=== PATIENT | female | born 1955 | race Caucasian/White ===

== ENCOUNTER → 2017-03-07 | Outpatient (CLI) | payer OTHER ==
--- NOTE | 2017-03-07 15:56 | MAMMOGRAPHY REPORT ---
BILATERAL DIGITAL SCREENING MAMMOGRAM WITH CAD: 03/07/2017 CLINICAL HISTORY: Routine screening. TECHNIQUE: Bilateral CC, MLO and repeat left MLO view with more anterior compression views were obta ined. Current study was also evaluated with a Computer Aided Detection (CAD) system. COMPARISON: Comparison is made to exams dated: 03/02/2016 mammogram, 02/28/2015 mammogram, 02/14/2014 mammogram, 02/13/2013 mammogram, 06/09/2011 mammogram, and 06/08/2010 mammogram - [facility] nter. BREAST COMPOSITION: There are scattered areas of fibroglandular density in both breasts. FINDINGS: There is a 6 mm nodular asymmetry in the middle to posterior right breast, along the post erior nipple line on the CC view, with possible associated calcification. This is thought to projec t in the 6:00 axis based on the MLO view, but could also lie in the 12:00 axis. Additional spot com pression tomosynthesis views and spot magnification views, as well as possible ultrasound is recomme nded. There is a stable mass with associated popcorn calcification in the upper outer quadrant of the righ t breast, most likely a degenerating fibroadenoma. No other suspicious mass, focal area of architec tural distortion or suspicious calcifications are seen bilaterally. IMPRESSION: ACR BI-RADS CATEGORY 0: INCOMPLETE EVALUATION: NEED ADDITIONAL IMAGING EVALUATION The 6 mm nodular asymmetry with possible associated microcalcification in the right breast needs add itional evaluation. The patient will be called to schedule an appointment. Approximately 10% of breast cancers are not detected with mammography. A negative mammographic repor t should not delay biopsy if a clinically suggestive mass is present. Sissy Larry M.D. ay/:03/07/2017 15:52:05 Credit Officer: Yara PATEL(Lizeth)(M), [facility] letter sent: Addl Imaging 0 BI-RADS Code: ACR BI-RADS Category 0: Incomplete Evaluation: Need Additional Imaging Evaluation
== END | disposition home or self-care (01) ==
LOC: C.MAMM 12:35
PROVIDERS: ATTEND Obstetrics & Gynecology
DX: Z12.31 Encounter for screening mammogram for malignant neoplasm of breast (principal); N64.89 Other specified disorders of breast

== ENCOUNTER → 2017-03-14 | Outpatient (CLI) | payer OTHER ==
--- NOTE | 2017-03-14 14:25 | MAMMOGRAPHY REPORT ---
UNILATERAL RIGHT DIGITAL DIAGNOSTIC MAMMOGRAM TOMOSYNTHESIS AND TARGETED RIGHT ULTRASOUND: 03/14/2017 CLINICAL HISTORY: 61-year-old woman called back from screening mammography for a 6 mm nodular asymme try with possible associated microcalcification in the 6:00 right breast. Patient reports a history of prior cyst aspiration. TECHNIQUE: Spot magnification right CC and ML , spot compression to the digital and tomosynthesis ri ght CC and MLO views were obtained. COMPARISON: Comparison is made to exams dated: 03/07/2017 mammogram, 03/02/2016 mammogram, 02/28/2015 m ammogram, 02/14/2014 mammogram, 02/13/2013 mammogram, and 06/09/2011 mammogram - [facility] nt. BREAST COMPOSITION: There are scattered areas of fibroglandular density in the right breast. FINDINGS: There is persistence of a 5.5 x 3.9 x 5.2 mm mass with associated faint punctate and kayce phous microcalcifications in the 6:00 middle to posterior right breast. No associated architectural distortion. Further evaluation with ultrasound was performed. Targeted ultrasound was performed in the 5:00 through 7:00, retroareolar and 12:00 axes of the right breast. In the 6:30 breast, 3 cm from the nipple, there is a lobulated isoechoic possible mass marissa mica fat lobule measuring 5.1 x 2.6 mm identified in the anti-radial plane. However, this is less co nspicuous in the radial plane and unclear if this represents a true finding or normal fat lobule. O verall, no definite sonographic correlate is identified. Given the newly visualized nature of this focal asymmetry with associated microcalcification, it rem ains indeterminate and definitive characterization with a stereotactic guided biopsy is recommended. IMPRESSION: ACR BI-RADS CATEGORY 4B: INTERMEDIATE SUSPICION FOR MALIGNANCY, TARGETED ULTRASOUND ACR BI-RADS CATEGORY 4B: INTERMEDIATE SUSPICION FOR MALIGNANCY 1. Right breast stereotactic guided biopsy is recommended for a 5.5 mm focal asymmetry with associa emilia clustered amorphous microcalcifications in the 6:00 right breast. These results and recommendations were discussed with the patient at the time of the exam. She tent atively scheduled the biopsy prior to leaving our department. Approximately 10% of breast cancers are not detected with mammography. A negative mammographic repor t should not delay biopsy if a clinically suggestive mass is present. Sissy malone/:03/14/2017 10:42:50 Osteopathic Resident: Erin Villaseñor [facility] letter sent: Abnormal / BI-RADS Code: ACR BI-RADS Category 4B: Intermediate Suspicion For Malignancy Ultrasound BI-RADS: AC R BI-RADS Category 4B: Intermediate Suspicion For Malignancy
== END | disposition home or self-care (01) ==
LOC: C.MAMM 09:01
PROVIDERS: ATTEND Obstetrics & Gynecology
DX: R92.0 Mammographic microcalcification found on diagnostic imaging of breast (principal)

== ENCOUNTER → 2017-03-22 | Outpatient (CLI) | payer OTHER ==
--- NOTE | 2017-03-22 13:26 | Discharge Instructions ---
Discharge Instructions Procedure Procedure Date: March 22, 2017. Reason for visit: Right Mass/Calcs. Discharge Discharge Date: March 22, 2017. Discharge Diagnosis: post right breast stereotactic guided biopsy Instructions Activity Recommendations: Additional Limitations (See below) Return to School/Work: no limitations Recommended Home Diet: No Limitations Provider Instructions: ACTIVITY RECOMMENDATIONS: * No lifting, pushing, pulling or exercising the affected side for three days. RETURN TO SCHOOL/WORK: * You may return to work/school after the procedure, but do not perform any strenuous activities for 24 to 48 hours. MEDICATIONS: * Tylenol (two 325 mg) every four to six hours if needed for mild pain (if not allergic to Tylenol). DIET: * Resume previous diet. SPECIAL CARE INSTRUCTIONS: * Keep biopsy site dry for 24 hours. May shower after 24 hours, but do not soak (bathe) incision. * May remove Tegaderm (plastic patch) tomorrow AFTER showering. * Leave the steri-strips on for one week. Allow the steri-strips to fall off by themselves. If not off after one week, you may remove them. You may place a Bandaid crosswise over the strips, if desired. * Apply ice 10 minutes on and 10 minutes off as needed. * Wear a bra at bedtime to sleep more comfortably for 2-3 days. * Your referring physician should have the results after approximately 5 to 7 business days. * Call for unusual bleeding, fever, drainage, etc or if you have any questions call [phone] during normal business hours or after hours call Dr Larry, . FOLLOW UP VISIT: Follow-up with Referring Physician as scheduled. Allergies Coded Allergies: No Known Allergies (Verified Allergy, Unknown, 12/20/02) Uncoded Allergies: N (Allergy, Unknown, 12/20/02) NFA (Allergy, Unknown, 12/20/02) NKDA (Allergy, Unknown, 12/20/02) NO (Allergy, Unknown, 12/20/02) Amada Hatch Recommendations: Call your doctor if: * Temperature above 101 degrees * Pain not relieved by pain medicine ordered * There is increased drainage or redness from any incision * You have any unanswered questions or concerns. Your Doctors Instructions noted above were prepared by provider Sissy Larry. Patient Signature Section: Patient Instructions Signature Page Aby Jesus Patient (or Guardian) Signature/Date: I have read and understand the instructions given to me by my caregivers. Caregiver/RN/Doctor Signature/Date: The above-named patient and/or guardian has received patient instructions on this date. + Original Patient Signature Page (only) stays with chart. Please make copy for patient.
--- NOTE | 2017-03-22 16:18 | MAMMOGRAPHY REPORT ---
THIS REPORT HAS BEEN AMENDED. AMENDMENT: 03/30/2017 Sissy Larry M.D. Pathology results from the stereotactic guided biopsy of a small asymmetry with associated calcifica tion in the 6:00 right breast yielded fibrocystic change with apocrine metaplasia and benign breast tissue with variable stromal fibrosis. Pathology results are concordant with the imaging appearance . Recommend return to annual screening mammography schedule. STEREOTACTIC GUIDED BIOPSY RIGHT BREAST: 03/22/2017 CLINICAL HISTORY: 5.5 mm focal asymmetry with associated faint amorphous microcalcification in the 6 :00 middle to posterior right breast, without sonographic correlate identified. Patient presents fo r stereotactic biopsy. COMPARISON: Comparison is made to exams dated: 03/14/2017 ultrasound, 03/14/2017 mammogram, 03/07/2017 ma mmogram, 03/02/2016 mammogram, 02/28/2015 mammogram, and 02/14/2014 mammogram - [facility] enter. PATIENT CONSENT: After explaining the risks, benefits and alternatives of the procedure to the patie nt, informed consent was obtained both verbally and in writing. Specific risks include: Bleeding, i nfection, puncture of adjacent structure, nontarget biopsy, sampling error, metal allergy and medica tion reaction. PROCEDURE DESCRIPTION: A time-out was performed and the right breast was confirmed as the site of bi opsy. The patient was placed prone on the stereotactic biopsy table and the breast was placed in CC from below compression. A obgyn hospitalist physician image was obtained that demonstrated the nodular asymmetry with asso ciated faint amorphous microcalcifications in question. It is amenable to sterotactic biopsy. Then +15 and -15 stereo pair images were obtained. The calcification within the asymmetry was targeted utilizing the coordinates obtained with a computer. The skin was prepped with Betadine. 1% Lidocain e with and without epinipherine was administered as local anesthesia. A small skin incision was made . Through the incision, the needle was inserted to the depth determined by the computer. 10 samples were obtained using a [employer] 9-gauge vacuum-assisted biopsy device. The specimen radiograph de monstrated a few screening representative microcalcifications, therefore, a metallic marker was placed at the biopsy site. There was no immediate complication. Hemostasis was achieved after several minutes of m anual compression. The core biopsy specimen containing the microcavitation occasions was out from the remainder of the samples and sent to the pathology department in a container labeled wi th calcifications. The remainder of the samples were sent and another container labeled without brenna cifications. All of the samples were obtained from the same single biopsy site. Postprocedure CC and ML views of the right breast demonstrate a new dumbbell-shaped metallic biopsy marker and no significant hematoma in the 6:00 breast, at the site of the biopsied asymmetry with as sociated calcification in question. Based on the post procedure ML view, there is approximately 3 c m of inferior migration of the biopsy marker clip with regard to the prior expected location of the asymmetry. IMPRESSION: STEREOTACTIC GUIDED BIOPSY Status post right breast stereotactic guided biopsy of a 5.5 mm asymmetry with associated amorphous microcalcification in the 6:00 right breast, with biopsy marker placed at site. The patient will receive notification of the biopsy results from her referring physician. Sissy Larry M.D. ay/:03/22/2017 14:16:10 Attending Technologist: Muna Elmore RT(R)(M), [facility] Package Pick Up: Suki PATEL(R)(M), [facility]
--- NOTE | 2017-03-22 16:19 | MAMMOGRAPHY REPORT ---
UNILATERAL RIGHT DIGITAL DIAGNOSTIC MAMMOGRAM: 03/22/2017 CLINICAL HISTORY: Status post stereotactic biopsy of a small 5.5 mm focal asymmetry with associated clustered amorphous microcalcification in the 6:00 right breast. Please refer to the report from right breast stereotactic guided biopsy performed at the same time f or full detail. IMPRESSION: POST PROCEDURE IMAGING FOR MARKER PLACEMENT Please refer to the report from right breast stereotactic guided biopsy performed at the same time f or full detail. Approximately 10% of breast cancers are not detected with mammography. A negative mammographic repor t should not delay biopsy if a clinically suggestive mass is present. Sissy Larry M.D. ay/:03/22/2017 13:30:41 Attending Technologist: Muna Elmore RT(R)(M), [facility] Aircraft Instrument Repairer: Suki Bush RT(R)(M), [facility] BI-RADS Code: Post Procedure Imaging For Marker Placement
== END | disposition home or self-care (01) ==
LOC: C.MAMM 12:09
PROVIDERS: ATTEND Obstetrics & Gynecology
DX: N60.31 Fibrosclerosis of right breast (principal); N60.91 Unspecified benign mammary dysplasia of right breast; R92.0 Mammographic microcalcification found on diagnostic imaging of breast

== ENCOUNTER → 2017-07-27 | Outpatient (CLI) | payer OTHER | END | disposition home or self-care (01) | LOC: C.PAPS 09:26 | PROVIDERS: ATTEND Obstetrics & Gynecology | DX: Z12.72 Encounter for screening for malignant neoplasm of vagina (principal); Z90.710 Acquired absence of both cervix and uterus ==

== ENCOUNTER → 2017-10-11 | Outpatient (CLI) | payer OTHER ==
[2017-10-11 17:45] LABS: ALT/SGPT 27 U/L (12-78); BLOOD UREA NITROGEN 17 mg/dl (7-18); BUN/CREATININE RATIO 17.7 (10-20); CALCIUM 9.8 mg/dl (8.5-10.1); CARBON DIOXIDE 31 mmol/L (21-32); CHLORIDE 104 mmol/L (98-107); CHOLESTEROL 295 mg/dl (0-200); CREATININE 0.97 mg/dl (0.60-1.20); GLUCOSE 94 mg/dl (70-99); SODIUM 139 mmol/L (136-145)
[2017-10-11 17:58] LABS: ALB/GLOB RATIO 1.1 (0.9-2); ALKALINE PHOSPHATASE 79 U/L (45-117); AST/SGOT 22 U/L (15-37); CHOLESTEROL/HDL RATIO 4.5; HDL CHOLESTEROL 65 mg/dl; LDL CHOLESTEROL CALCULATED 209 mg/dl; TRIGLYCERIDES 103 mg/dl (0-150); VERY LOW DENSITY LIPOPROT CALC 21 mg/dl
[2017-10-12 06:27] LABS: ESTIMATED AVERAGE GLUCOSE 117 mg/dl; HA1C FLAG Normal (Normal)
== END | disposition home or self-care (01) ==
LOC: C.LABBFT 14:17
PROVIDERS: ATTEND Physician Assistant Medical
DX: R73.09 Other abnormal glucose (principal); E78.5 Hyperlipidemia, unspecified; E03.9 Hypothyroidism, unspecified

== ENCOUNTER → 2018-03-10 | Outpatient (CLI) | payer OTHER ==
--- NOTE | 2018-03-10 14:20 | MAMMOGRAPHY REPORT ---
BILATERAL DIGITAL SCREENING MAMMOGRAM TOMOSYNTHESIS WITH CAD: 03/10/2018 CLINICAL HISTORY: Routine screening. Patient has no complaints. TECHNIQUE: Breast tomosynthesis in addition to standard 2D mammography was performed. Current study was also evaluated with a Computer Aided Detection (CAD) system. COMPARISON: Comparison is made to exams dated: 03/22/2017 mammogram, 03/22/2017 stereotactic biopsy, ultrasound, 03/14/2017 mammogram, 03/07/2017 mammogram, and 03/02/2016 mammogram - [facility]. BREAST COMPOSITION: There are scattered areas of fibroglandular density in both breasts. FINDINGS: No suspicious masses, calcifications, or areas of architectural distortion are noted in ei ther breast. There has been no significant interval change compared to prior exams. A biopsy clip is again noted within the right 6:00 breast from prior benign stereotactic biopsy. A benign-appearing mass with an associated coarse calcification in the right upper outer quadrant is stable and consiste nt with a benign degenerating fibroadenoma. IMPRESSION: ACR BI-RADS CATEGORY 2: BENIGN There is no mammographic evidence of malignancy. A 1 year screening mammogram is recommended. The pa tient will receive written notification of the results. Approximately 10% of breast cancers are not detected with mammography. A negative mammographic report should not delay biopsy if a clinically suggestive mass is present. Brenda Mckeon M.D. /:03/10/2018 07:52:10 Curb Supervisor: Jennifer REYNOSO)(Jami), [facility] letter sent: Normal 1/2 BI-RADS Code: ACR BI-RADS Category 2: Benign
== END | disposition home or self-care (01) ==
LOC: C.MAMM 07:19
PROVIDERS: ATTEND Internal Medicine
DX: Z12.31 Encounter for screening mammogram for malignant neoplasm of breast (principal)